=== PATIENT | female | born 1980 | race Two or more races ===

== ENCOUNTER 2021-07-20 08:39 | Emergency (ER) | payer BC ==
[~2021-07-20] VITALS: Ht 149.9 cm; Wt 70.8 kg
[2021-07-20 09:15] VITALS: BP 130/85
[2021-07-20] MEDS ORDERED: ACETAMINOPHEN/CODEINE#3 (300/30mg) TAB PO ONE (10:15)
[2021-07-20] MEDS ORDERED: ONDANSETRON ODT 4 MG TAB PO ONE (10:15)
== END 2021-07-20 11:04 | disposition home or self-care (01) ==
LOC: ER 08:39
DX: S60.112A Contusion of left thumb with damage to nail, initial encounter (principal); W23.0XXA Caught, crushed, jammed, or pinched between moving objects, initial encounter; Y93.89 Activity, other specified; Y92.89 Other specified places as the place of occurrence of the external cause; Y99.8 Other external cause status
CPT/HCPCS: 73140; 99283; Q0162